=== PATIENT | female | born 1950 | race Caucasian/White ===

== ENCOUNTER 2019-01-28 09:47 | Observation (INO) | payer OTHER ==
--- NOTE | 2019-01-28 10:24 | RAD ---
XR Chest 1 View Portable HISTORY: Chest pain COMPARISON: None FINDINGS: The heart size is normal. The lungs are well expanded without focal areas of consolidation, pneumothorax or pleural effusions. There are degenerative changes in the spine. IMPRESSION: No radiographic evidence of acute cardiopulmonary process.
[2019-01-28 10:30] LABS: #Basophils 0.1 thou/uL (0.0-0.2); #Eosinphils 0.3 thou/uL (0.0-0.7); #Lymphocytes 2.5 thou/uL (1.20-3.40); #Monocytes 0.5 thou/uL (0.11-0.59); #Neutrophils 2.4 thou/uL (1.40-6.50); %Eosinophils 5.2 % (0.0-10.0); %Lymphocytes 43.4 % (21.0-51.0); %Monocytes 8.8 % (0.0-10.0); %Neutrophils 41.6 % (42.0-75.0); Hemoglobin 13.5 g/dL (12.0-16.0); Mean Corpuscular HGB CONC 32.9 g/dL (32.0-36.0); Mean Corpuscular Hemoglobin 28.2 pg (27.0-31.0); Mean Corpuscular Volume 85.7 fL (78.0-98.0); Mean Platelet Volume 6.9 fL (7.4-10.4); Platelet Count 380 thou/uL (130-400); RBC Distribution Width 11.9 % (11.5-14.5); White Blood Cell (WBC) Count 5.7 thou/uL (4.8-10.8)
[2019-01-28 10:48] LABS: ALT (SGPT) 9 U/L (8-55); AST (SGOT) 16 U/L (5-34); Albumin 4.5 g/dL (3.4-4.8); Alkaline Phosphatase 77 U/L (40-150); Anion Gap 17 mmol/L (10-20); BUN (Urea Nitrogen) 13 mg/dL (9.8-20.1); Bilirubin, Total 0.3 mg/dL (0.2-1.2); CK (CPK) 52 U/L (29-168); Calc. Creatinine Clearance 0 mL/min (70-130); Calcium 9.7 mg/dL (7.8-10.44); Carbon Dioxide 23 mmol/L (23-31); Chloride 103 mmol/L (98-107); Estimated GFR-MDRD 83; Globulin 2.9 g/dL (2.4-3.5); Glucose 99 mg/dL (80-115); Lipase 46 U/L (8-78); Protein, Total 7.4 g/dL (6.0-8.3); Sodium 139 mmol/L (136-145)
[2019-01-28] MEDS ORDERED: Aspirin Chewable 81 MG TAB ONE (12:06)
[2019-01-28] MEDS ORDERED: Ondansetron ODT 4 MG TAB SL PRN (13:28)
[2019-01-28] MEDS ORDERED: Ondansetron PF 4 MG/2 ML Vial IVP PRN ×2 (13:28→18:34)
[2019-01-28] MEDS ORDERED: Acetaminophen 325 MG TAB PO PRN (13:28)
[2019-01-28 13:32] VITALS: BMI 26.9
[2019-01-28 13:52] LABS: Troponin I 0.023 ng/mL (< 0.028)
[2019-01-28 16:56] LABS: Troponin I 0.018 ng/mL (< 0.028)
[2019-01-28] MEDS ORDERED: hydrALAZINE 20 MG/ML VIAL SLOW IVP PRN (18:34)
[2019-01-28] MEDS ORDERED: Acetaminophen 500 MG TAB PO PRN (18:34)
[2019-01-28] MEDS ORDERED: Ondansetron ODT 4 MG TAB PO PRN (18:34)
[2019-01-28] MEDS: Famotidine 20 MG TAB PO SCH (20:51)
--- NOTE | 2019-01-29 00:44 | HP ---
PRIMARY CARE PROVIDER: Dr. James Almeida. CHIEF COMPLAINT: Chest pain. HISTORY OF PRESENT ILLNESS: This is a 68-year-old female, who presented to [facility] Emergency Department after complaining of sudden onset of sharp central chest pain while at her work. 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 The patient states the pain lasted for several minutes and did not relieve with positional changes. The patient did not take any specific medications for relief and became concerned. The patient initially rated the pain 8/10 at the height of severity at which point her coworkers recommended she seek medical attention. The patient denies any personal prior history of coronary artery disease, but states she has a strong family history. The patient underwent cardiac stress testing in the remote past and apparently was told this was negative. The patient admits to history of hyperlipidemia, taking Zocor on a daily basis. The patient does admit to a recent history of left lower quadrant abdominal pain which began in the last 48-72 hours, prompting her to seek medical attention at her primary care provider's office. The patient was diagnosed clinically with diverticulitis and recommended for conservative management. The patient states she took Metamucil tablet in addition to Tylenol and ibuprofen for relief. The patient denied any fever, chills, increased cough, congestion, or travel history. The patient denied any unilateral lower extremity swelling. In the emergency room, the patient underwent general evaluation including chest imaging showing no acute infiltrates. EKG and metabolic workup were unremarkable. The patient did receive aspirin 324 mg and was referred to the Hospitalist Service for evaluation. PAST MEDICAL HISTORY: Hyperlipidemia. PAST SURGICAL HISTORY: 1. Status post uterine ablation. 2. Status post bunionectomy. 3. Status post breast reduction. CURRENT MEDICATIONS: 1. Tylenol 1000 mg p.o. q.6 hours p.r.n. 2. Vitamin C 500 mg p.o. daily. 3. Vitamin D3 1000 units p.o. daily. 4. Ibuprofen 200 mg p.o. q.6 hours p.r.n. 5. Zocor 20 mg p.o. daily. ALLERGIES: NO KNOWN DRUG ALLERGIES. FAMILY HISTORY: Mother of complications of a blood clot. History of coronary artery bypass. SOCIAL HISTORY: The patient resides in [place], [place]. Accompanied with her sister and daughter in the hospital. No current alcohol, tobacco, or illicit drug use. Functional of all activities of daily living. Employed as an sba business development officer. REVIEW OF SYSTEMS: CONSTITUTIONAL: Negative for weight loss or gain, ability to conduct usual activities. SKIN: Negative for rash, itching. EYES: Negative for double vision, pain. ENT/MOUTH: Negative for nose bleeding, neck stiffness, pain, tenderness. CARDIOVASCULAR: Negative for palpitations, dyspnea on exertion, orthopnea. RESPIRATORY: Negative for shortness of breath, wheezing, cough, hemoptysis, fever or night sweats. GASTROINTESTINAL: Negative for poor appetite, abdominal pain, heartburn, nausea, vomiting, constipation, or diarrhea. GENITOURINARY: Negative for urgency, frequency, dysuria, nocturia. MUSCULOSKELETAL: Negative for pain, swelling. NEUROLOGIC/PSYCHIATRIC: Negative for anxiety, depression. ALLERGY/IMMUNOLOGIC: Negative for skin rash, bleeding tendency. Otherwise negative except as stated per HPI. PHYSICAL EXAMINATION: VITAL SIGNS: On admission, blood pressure 143/83, pulse 85, respiratory rate 18, temperature 98.1 degrees Fahrenheit, O2 saturation 97% on room air. GENERAL APPEARANCE: This is a 68-year-old female, alert and oriented x3, pleasant, smiling, in no acute distress. HEENT: Pupils are equal, round, reactive to light and accommodation. Extraocular muscles are intact. No scleral icterus. No conjunctival injection. Nares patent. OP is clear. Teeth in good repair. NECK: Supple. No cervical adenopathy. No thyromegaly. No carotid bruits. No JVD appreciated. Cervical spine with full active and passive range of motion. No meningeal signs noted. CHEST: Lungs are clear to auscultation bilaterally. CARDIOVASCULAR: S1-S2 without noted murmur, rub, or gallop. ABDOMEN: Rounded, soft, nontender, and nondistended. Bowel sounds are positive in all 4 quadrants. There is no hepatosplenomegaly. No abdominal bruits, no rebound or guarding appreciated. EXTREMITIES: Warm and dry with fair turgor. No clubbing, cyanosis, or asymmetric edema appreciated. Pulses palpable distally at the dorsalis pedis, posterior tibial, and popliteal arteries bilaterally. Capillary refill less than 2 seconds. NEUROLOGIC: Cranial nerves 2 through 12 are grossly intact. No focal or lateralizing signs appreciated. PERTINENT LAB AND X-RAY FINDINGS: Complete metabolic profile within normal limits. Troponin I negative x3. CBC within normal limits. Portable chest x-ray dated 01/28/2019, showed no acute cardiopulmonary process. EKG dated 01/28/2019, by my interpretation shows a sinus mechanism with heart rates in the 90s. Normal R-wave progression noted in the precordial leads. Normal axis. No acute ST-T wave changes appreciated. ASSESSMENT/PLAN: 1. Chest pain. The patient will be observed on the telemetry unit. We will proceed with Cardiolite stress test to rule out underlying ischemia. Serial cardiac biomarkers negative x3. Check fasting lipid profile in the a.m. Continue aspirin daily. 2. Hyperlipidemia. Check fasting lipid profile in the a.m. Continue Zocor 20 mg daily. 3. Gastroesophageal reflux. Suspected given patient's history. Continue Pepcid 20 mg p.o. b.i.d. 4. Diverticulitis. Suspected on prior clinical exam. No current evidence to suggest acute flare. Continue supportive management. Monitor clinically. 5. Prophylaxis. SCDs while in bed. Pepcid 20 mg p.o. b.i.d. N.p.o. after midnight. CODE STATUS: Full. Surrogate medical decision maker is the patient's sister. Job ID: [id number]
[2019-01-29] MEDS: Famotidine 20 MG TAB PO SCH (08:48)
[2019-01-29] MEDS ORDERED: Simvastatin 20 MG TAB PO SCH (09:00)
--- NOTE | 2019-01-29 14:03 | NM ---
CARDIAC SPECT: HISTORY: A 68-year-old female with chest pain, dyslipidemia. TECHNIQUE: A myocardial perfusion scan was performed using the single-isotope 1-day protocol with Technetium 99m sestamibi. Ten mCi were injected intravenously for the rest exam followed by 30 mCi for the stress study. Exercise stress is monitored and interpreted by Carmen Mcdaniel PA-C. FINDINGS: Homogeneous tracer distribution is seen on the myocardial segments on stress and rest images without fixed or reversible defects. The left ventricular cavity is larger on stress compared to rest with a TID ratio of 1.45. GATED SPECT LVEF: 79%. WALL MOTION EXAM: Normal. IMPRESSION: TID ratio is 1.45. Clinical correlation is recommended. POS: TPC
--- NOTE | 2019-01-29 14:22 | PDOC.HOSPP ---
- Subjective Encounter Date: 01/29/19 Encounter Time: 14:21 Subjective: Patient seen and examined. No new complaints. No overnight events - Objective Vital Signs & Weight: Vital Signs (12 hours) Temp Pulse Resp BP BP Pulse Ox 01/29/19 07:37 98.6 F 82 18 132/60 97 01/29/19 03:39 98.3 F 76 16 138/64 96 Weight Weight 157 lb 1 oz I&O: 01/28/19 01/29/19 01/30/19 06:59 06:59 06:59 Intake Total 700 Output Total 600 Balance 100 Result Diagrams: 01/28/19 10:07 01/28/19 10:07 Radiology Reviewed by me: Yes EKG Reviewed by me: Yes ROS - Review of Systems Constitutional: denies: fever, chills, sweats, weakness, malaise, other Eyes: denies: pain, vision change, conjunctivae inflammation, eyelid inflammation, redness, other ENT: denies: ear pain, ear discharge, nose pain, nose discharge, nose congestion , mouth pain, mouth swelling, throat pain, throat swelling, other Respiratory: denies: cough, dry, shortness of breath, hemoptysis, SOB with excertion, pleuritic pain, sputum, wheezing, other Cardiovascular: denies: chest pain, palpitations, orthopnea, paroxysmal noc. dyspnea, edema, light headedness, other Gastrointestinal: denies: nausea, vomitting, abdominal pain, diarrhea, constipation, melena, hematochezia, other Genitourinary: denies: dysuria, frequency, incontinence, hematuria, retention, other Musculoskeletal: denies: neck pain, shoulder pain, arm pain, back pain, hand pain, leg pain, foot pain, other Skin: denies: rash, lesions, partha, bruising, other Neurological: denies: weakness, numbness, incoordination, change in speech, confusion, seizures, other - Medication Medications: Active Medications Generic Name Dose Route Start Last Admin Trade Name Freq PRN Reason Stop Dose Admin Famotidine 20 mg 01/28/19 21:00 01/29/19 08:48 Pepcid PO 20 mg BID LEEANNE Administration Simvastatin 20 mg 01/29/19 09:00 01/29/19 08:48 Zocor PO 20 mg DAILY LEEANNE Administration - Exam NAD, awake alert Eye: PERRL, anicteric sclera ENT: normocephalic atraumatic, no oropharyngeal lesions Neck: supple, symmetric, no JVD Heart: RRR, no murmur, no gallops Respiratory: CTAB, no wheezes, no rales Gastrointestinal: soft, non-tender, non-distended Extremities: no cyanosis, no clubbing, no edema Skin: normal turgor, no lesions, no rashes Neurological: CN's grossly intact, normal sensation to touch, no focal deficits Musculoskeletal: normal tone, normal strength, no muscle wasting Psychiatric: normal affect, normal behavior, A&O x 3 Hosp A/P (1) Chest pain Code(s): R07.9 - CHEST PAIN, UNSPECIFIED Status: Acute (2) Dyslipidemia Code(s): E78.5 - HYPERLIPIDEMIA, UNSPECIFIED Status: Chronic (3) GERD (gastroesophageal reflux disease) Code(s): K21.9 - GASTRO-ESOPHAGEAL REFLUX DISEASE WITHOUT ESOPHAGITIS Status: Chronic - Plan old records reviewed/req stress test reported high TID, will consult cardiogy for opinion medication reviewed as above symptomatic treatment
[2019-01-29 15:27] VITALS: BP 145/87; TEMP 98.3
--- NOTE | 2019-01-29 18:19 | CON ---
DATE OF CONSULTATION: REASON FOR CONSULTATION: Abnormal stress study. HISTORY OF PRESENT ILLNESS: Ms. Blackburn is a very pleasant 68-year-old woman with previous history of hyperlipidemia and anxiety, who recently presented with chest pain. She has been struggling with lower abdominal discomfort and has been seen by her GIN doctor. She presented with an episode of 15 minutes of chest pain. It was sharp, midsternal with neck radiation. She presented to the emergency room. Her EKG is normal. Her enzymes are also normal. She underwent a noninvasive stress study. It showed an elevated TID with small LV volumes. LVEF 75% with no ischemia present. PAST MEDICAL HISTORY: As described above. Uterine ablation, bunionectomy, and breast reduction. MEDICATIONS: Include Tylenol, vitamins, and Zocor. ALLERGIES: NONE. FAMILY HISTORY: Negative for CAD. SOCIAL HISTORY: No current tobacco or alcohol use. REVIEW OF SYSTEMS: A 10-point review of systems is reviewed as above, otherwise negative. PHYSICAL EXAMINATION: GENERAL: The patient is a pleasant 68-year-old woman, who is in no acute distress. The patient appears their stated age. VITAL SIGNS: Blood pressure 145/87, pulse 93, and temperature 98.3. NEUROLOGIC: The patient is alert and oriented x3 with no focal neurologic deficits. HEENT: Sclerae without icterus. Mouth has moist mucous membranes with normal pallor. NECK: No JVD. Carotid upstroke brisk. No bruits bilaterally. LUNGS: Clear to auscultation with unlabored respirations. BACK: No scoliosis or kyphosis. CARDIAC: Regular rate and rhythm with normal S1 and S2. No S3 or S4 noted. No significant rubs, murmurs, thrills, or gallops noted throughout the precordium. PMI is not displaced. There is no parasternal heave. ABDOMEN: Soft, nontender, nondistended. No peritoneal signs present. No hepatosplenomegaly. No abnormal striae. EXTREMITIES: 2+ femoral and 2+ dorsalis pedis pulses. No cyanosis, clubbing, or edema. SKIN: No gross abnormalities. PERTINENT LABORATORY DATA: Hemoglobin 13.5 and white blood cell count 5.7. Troponin negative. Platelet count 204. IMPRESSION: 1. Elevated transient ischemic dilation on recent stress study. 2. Chest pain. RECOMMENDATION: Ms. Blackburn's symptoms are atypical for angina. Her EKG is normal. Her enzymes are also normal. Her elevated TID likely a reflection of low LV volumes. Her a.m. systolic volume was 10 mL, which is felt to be small. The TID ratio in this case is possibly elevated. Based on the above, I do not feel this is an abnormal stress. At this point, would be okay for discharge. Plan is to follow up with [facility] in the next 1 to 2 weeks. Job ID: [id number]
--- NOTE | 2019-01-29 18:58 | DIS ---
DATE OF ADMISSION: 01/28/2019 DATE OF DISCHARGE: 01/29/2019 PRIMARY CARE PHYSICIAN: Dr. James Almeida. DISCHARGE DISPOSITION: Home. PRIMARY DISCHARGE DIAGNOSIS: Chest pain, ruled out acute coronary syndrome. SECONDARY DISCHARGE DIAGNOSES: 1. Dyslipidemia. 2. Gastroesophageal reflux disease. PRIMARY PROCEDURE/OPERATION: None. RADIOLOGICAL INVESTIGATION,: Chest x-ray normal. Stress test showed elevated TID. SIGNIFICANT LABORATORY DATA: WBC 5.7, hemoglobin 13.5, platelets 380. BMP normal, LFT normal, cardiac enzyme negative, LDL 123. DISCHARGE MEDICATIONS: 1. Pepcid 20 mg p.o. b.i.d. The patient is advised to avoid NSAID including ibuprofen and naproxen. Continue Zocor 20 mg p.o. daily. 2. Vitamin C 500 mg p.o. daily. 3. Vitamin D3 1000 units p.o. daily. 4. Tylenol 1 g q.6 hourly p.r.n. CONTRAINDICATION: None. CODE STATUS: Full code. INPATIENT FRONT SERVICES AGENT: Dr. Dunaway. CASE RESULT PENDING ON DISCHARGE: None. ALLERGIES: NO KNOWN DRUG ALLERGIES. DISCHARGE PLAN: Posthospital, the patient will follow up with Cardiology in 2 weeks. HOSPITAL COURSE: A 68-year-old female, who was admitted by Dr. Abernathy. Please see his H and P for further details. The patient was hospitalized for chest pain. She had negative cardiac enzymes. Telemetry remained unremarkable. We did a Cardiolite stress test and that showed elevated TID and that is why we consulted Cardiology and Cardiology interpreted that result to be not significant and recommended to discharge this patient home. The patient was taking NSAID and that is why we advised her to avoid NSAID and we prescribed Pepcid 20 mg p.o. b.i.d. I have seen and examined the patient at bedside today. Please see my progress note from today for further detail. The patient is stable for discharge today. Job ID: [id number]
== END 2019-01-29 18:36 | disposition home or self-care (01) ==
LOC: ERS 09:47 → ERHOLD 12:25 → 2SW 13:14
PROVIDERS: ADMIT Family Medicine; ATTEND Family Medicine
DX: R07.9 Chest pain, unspecified (principal); I10 Essential (primary) hypertension; E78.5 Hyperlipidemia, unspecified; K21.9 Gastro-esophageal reflux disease without esophagitis; Z79.899 Other long term (current) drug therapy
CPT/HCPCS: 36415; 71045; 78452; 80053; 80061; 82550; 83690; 84484; 85025; 93005; 93017; A9500; G0378

== ENCOUNTER 2019-02-05 08:10 | Outpatient (CLI) | payer OTHER ==
--- NOTE | 2019-02-05 10:35 | MMO ---
Bilateral MAMMO Bilat Screen [facility]. CLINICAL HISTORY: Patient is 68 years old and is seen for screening. The patient has no family history of breast cancer. The patient has no personal history of cancer. The patient has a history of bilateral Breast reduction in 2008. VIEWS: The views performed were: bilateral craniocaudal with tomosynthesis and bilateral mediolateral oblique with tomosynthesis. FILMS COMPARED: The present examination has been compared to prior imaging studies performed at [facility] on 01/31/2018, and at [facility] on 04/12/2015, 10/20/2015 and 01/08/2017. MAMMOGRAM FINDINGS: The breasts are almost entirely fat. There are stable benign appearing calcifications seen in both breasts. There are no suspicious masses, suspicious calcifications, or new areas of architectural distortion. IMPRESSION: THERE IS NO MAMMOGRAPHIC EVIDENCE OF MALIGNANCY. A ROUTINE FOLLOW-UP MAMMOGRAM IN 1 YEAR IS RECOMMENDED. THE RESULTS OF THIS EXAM WERE SENT TO THE PATIENT. ACR BI-RADS Category 2 - Benign finding MAMMOGRAPHY NOTE: 1. A negative mammogram report should not delay a biopsy if a dominant of clinically suspicious mass is present. 2. Approximately 10% to 15% of breast cancers are not detected by mammography. 3. Adenosis and dense breasts may obscure an underlying neoplasm. Reported by: JESUS FAGAN MD Electonically Signed: [id number]
== END 2019-02-05 08:11 | disposition home or self-care (01) ==
LOC: BICMAMMO 08:10
PROVIDERS: ATTEND Obstetrics & Gynecology
DX: Z12.31 Encounter for screening mammogram for malignant neoplasm of breast (principal); Z98.82 Breast implant status
CPT/HCPCS: 77063; 77067

== ENCOUNTER 2021-03-10 10:34 | Emergency (ER) | payer MEDICARE, OTHER ==
[2021-03-10 11:26] LABS: #Eosinphils 0.3 thou/uL (0.0-0.7); #Lymphocytes 1.7 thou/uL (1.20-3.40); #Monocytes 0.5 thou/uL (0.11-0.59); #Neutrophils 3.7 thou/uL (1.40-6.50); %Basophils 0.7 % (0.0-1.0); %Eosinophils 4.5 % (0.0-10.0); %Lymphocytes 27.4 % (21.0-51.0); %Monocytes 7.5 % (0.0-10.0); %Neutrophils 59.9 % (42.0-75.0); Hemoglobin 14.4 g/dL (12.0-16.0); Mean Corpuscular HGB CONC 31.1 g/dL (32.0-36.0); Mean Corpuscular Hemoglobin 27.3 pg (27.0-31.0); Mean Corpuscular Volume 87.6 fL (78.0-98.0); Mean Platelet Volume 7.3 fL (7.4-10.4); Platelet Count 350 thou/uL (130-400); RBC Distribution Width 11.5 % (11.5-14.5); Red Blood Cell (RBC) Count 5.28 mill/uL (4.20-5.40); White Blood Cell (WBC) Count 6.1 thou/uL (4.8-10.8)
[2021-03-10 11:55] LABS: ALT (SGPT) 18 U/L (8-55); AST (SGOT) 22 U/L (5-34); Albumin 4.4 g/dL (3.4-4.8); Alkaline Phosphatase 82 U/L (40-110); Anion Gap 16 mmol/L (10-20); BUN (Urea Nitrogen) 15 mg/dL (9.8-20.1); Bilirubin, Total 0.4 mg/dL (0.2-1.2); Calc. Creatinine Clearance 0 mL/min (70-130); Calcium 9.4 mg/dL (7.8-10.44); Carbon Dioxide 25 mmol/L (23-31); Chloride 104 mmol/L (98-107); Globulin 2.7 g/dL (2.4-3.5); Glucose 99 mg/dL (83-110); Potassium 4.6 mmol/L (3.5-5.1); Protein, Total 7.1 g/dL (5.8-8.1); Sodium 140 mmol/L (136-145)
[2021-03-10] MEDS ORDERED: Aspirin Chewable 81 MG TAB ONE (13:10)
[2021-03-10] MEDS ORDERED: Nitroglycerin 0.4 MG TAB 1 EACH ONE (13:10)
== END 2021-03-10 16:36 ==
LOC: ERS 10:34
DX: R07.89 Other chest pain (principal); E78.5 Hyperlipidemia, unspecified; Z79.899 Other long term (current) drug therapy
CPT/HCPCS: 36415; 71045; 80053; 83690; 84484; 85025; 93005; 94760

== ENCOUNTER 2021-11-24 13:08 | Outpatient (CLI) | payer MEDICARE | END 2021-11-24 13:09 | disposition home or self-care (01) | LOC: BICULT 13:08 | PROVIDERS: ATTEND Physician Assistant Medical | DX: R10.13 Epigastric pain (principal); K21.9 Gastro-esophageal reflux disease without esophagitis; R07.89 Other chest pain | CPT/HCPCS: 76705 ==

== ENCOUNTER 2023-04-05 12:05 | Outpatient (CLI) | payer MEDICARE, OTHER | END 2023-04-05 12:06 | disposition home or self-care (01) | LOC: BICMAMMO 12:05 | PROVIDERS: ATTEND Obstetrics & Gynecology | DX: Z12.31 Encounter for screening mammogram for malignant neoplasm of breast (principal); Z98.82 Breast implant status | CPT/HCPCS: 77063; 77067 ==

== ENCOUNTER 2024-07-01 15:40 | Observation (INO) | payer MEDICARE, OTHER ==
[2024-07-01] MEDS ORDERED: Metoclopramide HCl 10 MG (2 mL) VIAL ONE (16:19)
[2024-07-01] MEDS ORDERED: diphenhydrAMINE 50 MG/ML VIAL ONE (16:19)
[2024-07-01 16:27] LABS: #Basophils Less than 0.03 10x3/uL (0.0-0.2); #Eosinophils Less than 0.03 10x3/uL (0.0-0.7); %Basophils 0.2 % (0.0-1.0); %Eosinophils 0.1 % (0.0-10.0); %Lymphocytes 6.8 % (21.0-51.0); %Neutrophils 87.6 % (42.0-75.0); Hemoglobin 13.3 g/dL (12.0-16.0); Mean Corpuscular HGB CONC 33.3 g/dL (32.0-36.0); Mean Corpuscular Hemoglobin 28.2 pg (27.0-31.0); Mean Corpuscular Volume 84.7 fL (78.0-98.0); Mean Platelet Volume 9.1 fL (7.4-10.4); Platelet Count 354 10x3/uL (130-400); RBC Distribution Width 13.2 % (11.5-14.5); Red Blood Cell (RBC) Count 4.72 mill/uL (4.20-5.40)
[2024-07-01 16:39] LABS: PTT 26.8 sec (22.9-36.1); Prothrombin Time 12.9 sec (12.0-14.7)
[2024-07-01 16:48] LABS: Troponin I Less than 0.010 ng/mL (< 0.028)
[2024-07-01 16:51] LABS: ALT (SGPT) 28 U/L (8-55); AST (SGOT) 23 U/L (5-34); Alkaline Phosphatase 65 U/L (40-110); Anion Gap 16 mmol/L (10-20); BUN (Urea Nitrogen) 12 mg/dL (9.8-20.1); Bilirubin, Total 0.5 mg/dL (0.2-1.2); Calc. Creatinine Clearance 0 mL/min (70-130); Carbon Dioxide 20 mmol/L (23-31); Chloride 101 mmol/L (98-107); Estimated GFR 93; Globulin 2.9 g/dL (2.4-3.5); Glucose 112 mg/dL (83-110); Potassium 3.5 mmol/L (3.5-5.1); Protein, Total 6.9 g/dL (5.8-8.1); Sodium 133 mmol/L (136-145)
[2024-07-01] MEDS ORDERED: Aspirin Chewable 81 MG TAB ONE (16:58)
[2024-07-01] MEDS ORDERED: Acetaminophen 325 MG TAB PO PRN (18:11)
[2024-07-01] MEDS ORDERED: Ketorolac Tromethamine 30 MG (1 mL) VIAL IVP PRN (18:11)
[2024-07-01] MEDS ORDERED: Acetaminophen 650 MG Suppository PR PRN (18:11)
[2024-07-01] MEDS ORDERED: hydrALAZINE 20 MG/ML VIAL SLOW IVP PRN (18:11)
[2024-07-01] MEDS ORDERED: Ondansetron ODT 4 MG TAB PO PRN (18:11)
[2024-07-01] MEDS: Atorvastatin Calcium 40 MG TAB PO SCH (20:53)
[2024-07-01] MEDS: traMADol HCl 50 MG TAB PO PRN (20:56)
[2024-07-01 23:02] VITALS: BMI 26.5
[2024-07-02 04:28] LABS: #Basophils 0.04 10x3/uL (0.0-0.2); %Basophils 0.5 % (0.0-1.0); %Eosinophils 2.9 % (0.0-10.0); %Lymphocytes 32.7 % (21.0-51.0); %Monocytes 13.5 % (0.0-10.0); Hematocrit 40.2 % (36.0-47.0); Hemoglobin 13.2 g/dL (12.0-16.0); Mean Corpuscular HGB CONC 32.8 g/dL (32.0-36.0); Mean Corpuscular Hemoglobin 28.1 pg (27.0-31.0); Mean Corpuscular Volume 85.5 fL (78.0-98.0); Mean Platelet Volume 9.5 fL (7.4-10.4); Platelet Count 369 10x3/uL (130-400); RBC Distribution Width 13.6 % (11.5-14.5)
[2024-07-02 04:50] LABS: Anion Gap 13 mmol/L (10-20); BUN (Urea Nitrogen) 14 mg/dL (9.8-20.1); Calc. Creatinine Clearance 84 mL/min (70-130); Calcium 8.8 mg/dL (7.8-10.44); Carbon Dioxide 24 mmol/L (23-31); Cardiac Risk 2.5 (Less than 4.5); Chloride 105 mmol/L (98-107); Cholesterol 137 mg/dl (< 200 Desired); Estimated GFR 92; Glucose 99 mg/dL (83-110); HDL Cholesterol 55 mg/dL (>60 Neg Risk); LDL Cholesterol, Calculated 57 mg/dL; Potassium 3.3 mmol/L (3.5-5.1); Sodium 139 mmol/L (136-145); Triglycerides 125 mg/dL (Less than 150)
[2024-07-02] MEDS ORDERED: Electrolyte Replacement Protocol 1 EACH FS PRN (07:53)
[2024-07-02] MEDS ORDERED: Electrolyte Replacement Protocol FS PRN (08:00)
[2024-07-02 08:32] LABS: Magnesium 2.2 mg/dL (1.6-2.6)
[2024-07-02] MEDS: Potassium Chloride 20 MEQ TAB PO SCH (09:38)
[2024-07-02] MEDS: Aspirin 81 mg Enteric Coated Tablet PO SCH (09:38)
[2024-07-02] MEDS: Lorazepam 1 MG TAB PO SCH (09:46)
[2024-07-02] MEDS: Ondansetron PF 4 MG/2 ML Vial IVP PRN (11:01)
[2024-07-02 14:40] VITALS: BMI 26.5
[2024-07-02 15:03] LABS: Potassium 3.9 mmol/L (3.5-5.1)
[2024-07-02 16:33] VITALS: BP 127/73; TEMP 97.8
== END 2024-07-02 17:38 | disposition home or self-care (01) ==
LOC: ERS 15:40 → 2SE 17:27
PROVIDERS: ADMIT Internal Medicine; ATTEND Internal Medicine
PROC: B24BZZZ Ultrasonography of Heart with Aorta (ICD-10-PCS; principal; 2024-07-02)
DX: I63.9 Cerebral infarction, unspecified (principal); R29.700 NIHSS score 0; I10 Essential (primary) hypertension; E78.5 Hyperlipidemia, unspecified; D72.829 Elevated white blood cell count, unspecified; Z86.73 Personal history of transient ischemic attack (TIA), and cerebral infarction without residual deficits; Z98.890 Other specified postprocedural states; Z88.1 Allergy status to other antibiotic agents; Z79.51 Long term (current) use of inhaled steroids; Z79.82 Long term (current) use of aspirin; Z79.1 Long term (current) use of non-steroidal anti-inflammatories (NSAID); Z79.899 Other long term (current) drug therapy
CPT/HCPCS: 70450; 70496; 70498; 70551; 71045; 80048; 80053; 80061; 83735; 84132; 84484; 85025 ×2; 85610; 85730; 93005; 93306; 94760; 96374; 96375 ×2; 99285; G0378 ×3; J1200; J2405; J2765; 36415; 36416

== ENCOUNTER 2025-01-25 23:33 | Emergency (ER) | payer MEDICARE, OTHER ==
[2025-01-26] MEDS ORDERED: Acetaminophen 500 MG TAB ONE (01:07)
[2025-01-26 01:16] LABS: #Basophils 0.03 10x3/uL (0.0-0.2); #Eosinophils Less than 0.03 10x3/uL (0.0-0.7); #Monocytes 1.15 10x3/uL (0.11-0.59); #Neutrophils 6.60 10x3/uL (1.40-6.50); %Basophils 0.4 % (0.0-1.0); %Eosinophils 0.2 % (0.0-10.0); %Lymphocytes 6.9 % (21.0-51.0); %Monocytes 13.7 % (0.0-10.0); %Neutrophils 78.6 % (42.0-75.0); Hematocrit 39.0 % (36.0-47.0); Hemoglobin 12.5 g/dL (12.0-16.0); Mean Corpuscular Hemoglobin 27.8 pg (27.0-31.0); Mean Corpuscular Volume 86.9 fL (78.0-98.0); Platelet Count 251 10x3/uL (130-400); Red Blood Cell (RBC) Count 4.49 mill/uL (4.20-5.40); White Blood Cell (WBC) Count 8.40 10x3/uL (4.8-10.8)
[2025-01-26 01:31] LABS: ALT (SGPT) 16 U/L (Less than 34); AST (SGOT) 24 U/L (11-34); Albumin 4.1 g/dL (3.1-4.5); Alkaline Phosphatase 74 U/L (40-110); Anion Gap 14 mmol/L (10-20); BUN (Urea Nitrogen) 10 mg/dL (9.8-20.1); Bilirubin, Total 0.2 mg/dL (0.3-1.2); Calc. Creatinine Clearance 0 mL/min (70-130); Calcium 8.3 mg/dL (7.8-10.44); Carbon Dioxide 24 mmol/L (23-31); Chloride 103 mmol/L (98-107); Globulin 2.8 g/dL (2.4-3.5); Glucose 132 mg/dL (83-110); Potassium 3.8 mmol/L (3.5-5.1); Sodium 137 mmol/L (136-145)
[2025-01-26] MEDS ORDERED: Ketorolac Tromethamine 30 MG (1 mL) VIAL ONE (02:33)
== END 2025-01-26 02:40 | disposition home or self-care (01) ==
LOC: ERS 23:33
DX: U07.1 COVID-19 (principal); Z86.73 Personal history of transient ischemic attack (TIA), and cerebral infarction without residual deficits
CPT/HCPCS: 70450; 71045; 80053; 85025; 87428; J1885; 36415; 96374